=== PATIENT | female | born 1960 | race Caucasian/White ===

== ENCOUNTER 2020-11-21 10:36 | Observation (INO) | payer BC ==
[2020-11-21 10:58] LABS: CHLORIDE,CL 102 mEq/L (98-106); SODIUM,NA 141 mEq/L (136-145)
[2020-11-21] MEDS ORDERED: Ondansetron 4 MG Tab.DIS PO PRN (12:32)
[2020-11-21] MEDS ORDERED: Sodium Chloride 0.9% 10 ML Syringe FLUSH PRN (12:32)
[2020-11-21] MEDS: Morphine 2 MG/ML SYRINGE IVPUSH PRN ×2 (14:32→17:05)
[2020-11-21] MEDS: Lactated Ringers 1,000 ML IV SCH ×2 (14:32→21:24)
[2020-11-21] MEDS: Acetaminophen/HYDROcodone 325-5 MG Tab PO PRN (19:51)
[2020-11-21] MEDS: Enoxaparin 40 MG/0.4 ML Syringe SUBCUT SCH (19:51)
[2020-11-22] MEDS: Morphine 2 MG/ML SYRINGE IVPUSH PRN (00:39)
[2020-11-22] MEDS: Acetaminophen/HYDROcodone 325-5 MG Tab PO PRN ×3 (01:51→16:14)
[2020-11-22] MEDS: HYDROmorphone 1 MG/ML Syringe IVPUSH PRN ×4 (04:09→20:55)
[2020-11-22] MEDS: Lactated Ringers 1,000 ML IV SCH ×3 (04:10→22:33)
[2020-11-22] MEDS ORDERED: Iopamidol 755 Mg/ML 200 ML Bottle IV ONE (07:23)
[2020-11-22 08:08] LABS: CHLORIDE,CL 101 mEq/L (98-106); SODIUM,NA 139 mEq/L (136-145)
[2020-11-22] MEDS: Piperacillin/Tazobactam 3.375 GM in Sodium Chloride 0.9% 100 ML IV SCH (16:04)
--- NOTE | 2020-11-22 16:04 | PCM.PN ---
- General Info Date of Service: 11/22/20 Admission Dx/Problem (Free Text): Pancreatitis Subjective Update: Kimberly is a 60 yo female who was admitted to the hospital from the clinic yesterday with pancreatitis. Patient was found to have an obstructing pancreatic head lesion and underwent ERCP and stent placement earlier this week. She was doing fine initially after discharge. Admits she had been doing well up until the night prior to being seen and started to develop severe RUQ pain with radi ation to her back. Admits to diarrhea, nausea and vomiting on admit. She had also noted swelling to both of her legs. She admits she is waiting to hear back from [facility] for further work up in regards to pancreatic lesion. Today she admits the pain is much better controlled. States she had a horrible night and finally after failing morphine and oral therapy she was switched to Dilaudid which did seem to help. She states she is feeling a lot better now. - Review of Systems General: Reports: Appetite. Denies: Fever, Chills HEENT: Reports: No Symptoms Pulmonary: Denies: Shortness of Breath, Cough Cardiovascular: Reports: Edema. Denies: Chest Pain, Palpitations Gastrointestinal: Reports: Abdominal Pain, Diarrhea, Nausea. Denies: Vomiting Genitourinary: Reports: No Symptoms Musculoskeletal: Reports: Back Pain Skin: Reports: Jaundice Neurological: Reports: No Symptoms - Patient Data Vitals - Most Recent: Last Vital Signs Temp 97.9 F 11/22/20 12:00 Pulse 85 11/22/20 12:00 Resp 16 11/22/20 12:00 BP 177/66 H 11/22/20 12:00 Pulse Ox 95 11/22/20 12:00 Weight - Most Recent: 178 lb I&O - Last 24 Hours: Intake & Output 11/22/20 11/22/20 11/22/20 06:59 14:59 22:59 Intake Total 1000 Output Total 800 300 Balance 200 -300 Lab Results Last 24 Hours: Laboratory Results - last 24 hr 11/22/20 11/22/20 11/22/20 Range/Units 07:50 07:50 07:50 WBC 9.0 (5.0-10.0) 10^3/uL RBC 3.13 L (4.00-5.50) 10^6/uL Hgb 9.7 L (12.0-16.0) g/dL Hct 30.9 L (37.0-47.0) % MCV 98.7 H (82.0-94.0) fL MCH 31.0 (27.0-32.0) pg MCHC 31.4 L (33.0-38.0) g/dL RDW Coeff of Espinoza 16.4 H (11.0-15.0) % Plt Count 546 H (150-400) 10^3/uL Neut % (Auto) 62.8 (35-85) % Lymph % (Auto) 24.3 (10-55) % [place] % (Auto) 10.2 (0-16) % Eos % (Auto) 2.3 (0-5) % Baso % (Auto) 0.4 (0-3) % Neut # (Auto) 5.64 (1.80-7.00) 10^3/uL Lymph # (Auto) 2.19 (1.00-4.80) 10^3/uL [place] # (Auto) 0.92 H (0.00-0.80) 10^3/uL Eos # (Auto) 0.21 (0.00-0.45) 10^3/uL Baso # (Auto) 0.04 10^3/uL Sodium 139 (136-145) mEq/L Potassium 4.2 (3.5-5.0) mEq/L Chloride 101 (98-106) mEq/L Carbon Dioxide 29 (21-32) mmol/L BUN 10 (7-18) mg/dL Creatinine 0.6 (0.6-1.0) mg/dL Est Cr Clr Drug Dosing 86.10 mL/min Estimated GFR (MDRD) > 60 (>=60) mL/min Glucose 104 H (75-99) mg/dL Calcium 9.4 (8.4-10.1) mg/dL Total Bilirubin 4.8 H (0.0-1.0) mg/dL AST 85 H (15-37) U/L ALT 139 H (12-78) U/L Alkaline Phosphatase 640 H (46-116) U/L Total Protein 6.5 (6.4-8.2) g/dL Albumin 2.3 L (3.4-5.0) g/dL Amylase 289 H (25-115) U/L Lipase 2197 H (73-393) U/L Med Orders - Current: Current Medications Hydrocodone Bitart/Acetaminophen ([place] 325-5 Mg) 1 - 2 tab PO Q6H PRN PRN Reason: Pain (severe 7-10) Last Admin: 11/22/20 07:51 Dose: 2 tab Documented by: Docusate Sodium (Colace) 100 mg PO DAILY [facility] Enoxaparin Sodium (Lovenox) 40 mg SUBCUT Q24H [facility] Last Admin: 11/21/20 19:51 Dose: 40 mg Documented by: Hydromorphone HCl (Dilaudid) 1 mg IVPUSH Q2H PRN PRN Reason: Pain Last Admin: 11/22/20 13:49 Dose: 1 mg Documented by: Lactated Ringer's (Ringers, Lactated) 1,000 mls @ 150 mls/hr IV ASDIRECTED [facility] Last Admin: 11/22/20 12:18 Dose: 150 mls/hr Documented by: Piperacillin Sod/Tazobactam (Sod 3.375 gm/ Sodium Chloride) 100 mls @ 25 mls/hr IV Q8H [facility] Ondansetron HCl (Zofran Odt) 4 mg PO Q4H PRN PRN Reason: nausea, able to take PO Pantoprazole Sodium (Protonix Iv) 40 mg IVPUSH Q24H [facility] Sodium Chloride (Saline Flush) 10 ml FLUSH ASDIRECTED PRN PRN Reason: Keep Vein Open Discontinued Medications Lactated Ringer's (Ringers, Lactated) 1,000 mls @ 150 mls/hr IV ASDIRECTED [facility] Last Admin: 11/22/20 04:10 Dose: 150 mls/hr Documented by: Iopamidol (Isovue-370 (76%)) 160 ml IV ONETIME ONE Stop: 11/22/20 07:24 Last Admin: 11/22/20 08:26 Dose: 108 ml Documented by: Morphine Sulfate (Morphine) 2 mg IVPUSH Q2H PRN PRN Reason: Pain (severe 7-10) Last Admin: 11/22/20 00:39 Dose: 2 mg Documented by: - Exam General: Alert, Oriented, Cooperative HEENT: Pupils Equal, Pupils Reactive, Scleral Icterus Neck: Supple. No: Lymphadenopathy Lungs: Clear to Auscultation, Normal Respiratory Effort Cardiovascular: Regular Rate, Regular Rhythm, No Murmurs GI/Abdominal Exam: Soft, No Mass, Tender (epigastric), Hepatomegaly. No: Guarding Extremities: Normal Inspection, Pedal Edema (2+ non pitting edema) Skin: Warm, Dry, Intact Psy/Mental Status: Alert, Normal Affect, Normal Mood Sepsis Event Note - Evaluation Sepsis Screening Result: No Definite Risk - Focused Exam Vital Signs: Vital Signs Temp Pulse Resp BP Pulse Ox 11/22/20 12:00 97.9 F 85 16 177/66 H 95 11/22/20 07:38 96.2 F L 82 18 160/72 H 100 11/22/20 04:00 97.2 F 78 18 163/76 H 100 - Problem List & Annotations (1) Acute pancreatitis after endoscopic retrograde cholangiopancreatography (ERCP) SNOMED Code(s): 076212438 Code(s): K91.89 - OTH POSTPROCEDURAL COMPLICATIONS AND DISORDERS OF DGSTV SYS; K85.90 - ACUTE PANCREATITIS WITHOUT NECROSIS OR INFECTION, UNSP Status: Acute Current Visit: Yes - Problem List Review Problem List Initiated/Reviewed/Updated: Yes - My Orders Last 24 Hours: My Active Orders 11/22/20 08:28 Lactated Ringers [Ringers, Lactated] 1,000 ml IV ASDIRECTED - Plan Plan:: Patient is scheduled to have CT of the abdomen/pelvis today. Patient will remain NPO at this time until results are back from CT scan. If CT scan is negative and no further intervention is needed at this time, will plan to advance diet to clear liquids. Lipase and amylase this morning has came down significantly as compared to yesterday. Will continue to closely monitor. Consulted with Dr. Martinez and will continue IV fluids at 150mls/hr. Ann Marie Ranulfo has been in contact with GI at [facility] in [place].
[2020-11-22] MEDS: Pantoprazole 40 MG Vial IVPUSH SCH (19:41)
[2020-11-22] MEDS: Enoxaparin 40 MG/0.4 ML Syringe SUBCUT SCH (19:41)
[2020-11-23] MEDS: Piperacillin/Tazobactam 3.375 GM in Sodium Chloride 0.9% 100 ML IV SCH ×4 (00:09→23:41)
[2020-11-23] MEDS: Lactated Ringers 1,000 ML IV SCH (04:23)
[2020-11-23 07:30] LABS: CHLORIDE,CL 102 mEq/L (98-106); SODIUM,NA 140 mEq/L (136-145)
[2020-11-23] MEDS: Docusate Sodium 100 MG Cap PO SCH (07:37)
[2020-11-23] MEDS: Pantoprazole 40 MG Vial IVPUSH SCH (19:42)
[2020-11-23] MEDS: Enoxaparin 40 MG/0.4 ML Syringe SUBCUT SCH (19:43)
--- NOTE | 2020-11-23 22:02 | PCM.PN ---
- General Info Date of Service: 11/23/20 Admission Dx/Problem (Free Text): Pancreatitis Subjective Update: Kimberly is a 60 yo female who was admitted to the hospital from the clinic yesterday with pancreatitis. Patient was found to have an obstructing pancreatic head lesion and underwent ERCP and stent placement earlier this week. She was doing fine initially after discharge. Admits she had been doing well up until the night prior to being seen and started to develop severe RUQ pain with radi ation to her back. Admits to diarrhea, nausea and vomiting on admit. She had also noted swelling to both of her legs. She admits she is waiting to hear back from [facility] in [place] for further work up in regards to pancreatic lesion. Today she admits the pain is much better controlled. States she had a horrible night and finally after failing morphine and oral therapy she was switched to Dilaudid which did seem to help. She states she is feeling a lot better now. 11/23/2020 Kimberly is in good spirits this morning. Denies any discomfort this morning. Admits she is feeling a lot better. States she did hear from [facility] and will be getting set up with surgery, PET scan, oncology all on the same day in regards to pancreatic lesion. Denies any new onset of symptoms today. Functional Status: Reports: Pain Controlled, Tolerating Diet, Ambulating, Urinating Pain Score: 0 - Review of Systems General: Denies: Fever, Fatigue HEENT: Reports: No Symptoms Pulmonary: Reports: No Symptoms Cardiovascular: Reports: No Symptoms Gastrointestinal: Reports: No Symptoms. Denies: Abdominal Pain, Diarrhea, Hematochezia, Nausea, Vomiting Genitourinary: Reports: No Symptoms Musculoskeletal: Reports: No Symptoms Skin: Reports: No Symptoms - Patient Data Vitals - Most Recent: Last Vital Signs Temp 99.3 F 11/23/20 20:00 Pulse 99 11/23/20 20:00 Resp 16 11/23/20 20:00 BP 174/79 H 11/23/20 20:00 Pulse Ox 100 11/23/20 20:00 Weight - Most Recent: 181 lb 9.6 oz I&O - Last 24 Hours: Intake & Output 11/23/20 11/23/20 11/23/20 06:59 14:59 22:59 Intake Total 975 2000 Output Total 2300 2800 Balance -1325 -800 Lab Results Last 24 Hours: Laboratory Results - last 24 hr 11/23/20 11/23/20 Range/Units 07:00 07:00 WBC 8.1 (5.0-10.0) 10^3/uL RBC 3.03 L (4.00-5.50) 10^6/uL Hgb 9.2 L (12.0-16.0) g/dL Hct 29.7 L (37.0-47.0) % MCV 98.0 H (82.0-94.0) fL MCH 30.4 (27.0-32.0) pg MCHC 31.0 L (33.0-38.0) g/dL RDW Coeff of Espinoza 15.6 H (11.0-15.0) % Plt Count 487 H (150-400) 10^3/uL Neut % (Auto) 65.3 (35-85) % Lymph % (Auto) 21.4 (10-55) % [place] % (Auto) 10.1 (0-16) % Eos % (Auto) 2.7 (0-5) % Baso % (Auto) 0.5 (0-3) % Neut # (Auto) 5.31 (1.80-7.00) 10^3/uL Lymph # (Auto) 1.74 (1.00-4.80) 10^3/uL Dickson # (Auto) 0.82 H (0.00-0.80) 10^3/uL Eos # (Auto) 0.22 (0.00-0.45) 10^3/uL Baso # (Auto) 0.04 10^3/uL Sodium 140 (136-145) mEq/L Potassium 3.5 (3.5-5.0) mEq/L Chloride 102 (98-106) mEq/L Carbon Dioxide 26 (21-32) mmol/L BUN 8 (7-18) mg/dL Creatinine 0.7 (0.6-1.0) mg/dL Est Cr Clr Drug Dosing 73.80 mL/min Estimated GFR (MDRD) > 60 (>=60) mL/min Glucose 95 (75-99) mg/dL Calcium 9.1 (8.4-10.1) mg/dL Total Bilirubin 4.2 H (0.0-1.0) mg/dL AST 72 H (15-37) U/L ALT 115 H (12-78) U/L Alkaline Phosphatase 538 H (46-116) U/L Total Protein 6.1 L (6.4-8.2) g/dL Albumin 2.3 L (3.4-5.0) g/dL Amylase 52 (25-115) U/L Lipase 150 (73-393) U/L Med Orders - Current: Current Medications Hydrocodone Bitart/Acetaminophen ([place] 325-5 Mg) 1 - 2 tab PO Q6H PRN PRN Reason: Pain (severe 7-10) Last Admin: 11/22/20 16:14 Dose: 2 tab Documented by: Docusate Sodium (Colace) 100 mg PO DAILY [facility] Last Admin: 11/23/20 07:37 Dose: 100 mg Documented by: Enoxaparin Sodium (Lovenox) 40 mg SUBCUT Q24H [facility] Last Admin: 11/23/20 19:43 Dose: 40 mg Documented by: Hydromorphone HCl (Dilaudid) 1 mg IVPUSH Q2H PRN PRN Reason: Pain Last Admin: 11/22/20 20:55 Dose: 1 mg Documented by: Piperacillin Sod/Tazobactam (Sod 3.375 gm/ Sodium Chloride) 100 mls @ 25 mls/hr IV Q8H [facility] Last Admin: 11/23/20 16:12 Dose: 25 mls/hr Documented by: Ondansetron HCl (Zofran Odt) 4 mg PO Q4H PRN PRN Reason: nausea, able to take PO Pantoprazole Sodium (Protonix Iv) 40 mg IVPUSH Q24H [facility] Last Admin: 11/23/20 19:42 Dose: 40 mg Documented by: Sodium Chloride (Saline Flush) 10 ml FLUSH ASDIRECTED PRN PRN Reason: Keep Vein Open Discontinued Medications Lactated Ringer's (Ringers, Lactated) 1,000 mls @ 150 mls/hr IV ASDIRECTED [facility] Last Admin: 11/22/20 04:10 Dose: 150 mls/hr Documented by: Lactated Ringer's (Ringers, Lactated) 1,000 mls @ 150 mls/hr IV ASDIRECTED [facility] Last Admin: 11/23/20 04:23 Dose: 150 mls/hr Documented by: Iopamidol (Isovue-370 (76%)) 160 ml IV ONETIME ONE Stop: 11/22/20 07:24 Last Admin: 11/22/20 08:26 Dose: 108 ml Documented by: Morphine Sulfate (Morphine) 2 mg IVPUSH Q2H PRN PRN Reason: Pain (severe 7-10) Last Admin: 11/22/20 00:39 Dose: 2 mg Documented by: - Exam General: Alert, Oriented, Cooperative, No Acute Distress HEENT: Scleral Icterus (significantly improved from yesterday) Neck: Supple Lungs: Clear to Auscultation, Normal Respiratory Effort Cardiovascular: Regular Rate, Regular Rhythm, No Murmurs GI/Abdominal Exam: Normal Bowel Sounds, Soft, Non-Tender, No Organomegaly, No Distention, No Mass Back Exam: Normal Inspection. No: CVA Tenderness (L), CVA Tenderness (R) Extremities: Pedal Edema (trace bilateral non-pitting) Peripheral Pulses: 2+: Dorsalis Pedis (L), Dorsalis Pedis (R) Skin: Warm, Dry, Intact, Other (trace of jaundice) Psy/Mental Status: Alert, Normal Affect, Normal Mood Sepsis Event Note - Evaluation Sepsis Screening Result: No Definite Risk - Focused Exam Vital Signs: Vital Signs Temp Temp Pulse Resp BP Pulse Ox 11/23/20 20:00 99.3 F 99 16 174/79 H 100 11/23/20 16:00 97.1 F 87 18 181/90 H 100 11/23/20 12:00 98.9 F 81 20 172/82 H 96 - Problem List & Annotations (1) Acute pancreatitis after endoscopic retrograde cholangiopancreatography (ERCP) SNOMED Code(s): 434396457 Code(s): K91.89 - OTH POSTPROCEDURAL COMPLICATIONS AND DISORDERS OF DGSTV SYS; K85.90 - ACUTE PANCREATITIS WITHOUT NECROSIS OR INFECTION, UNSP Status: Acute Current Visit: Yes - Problem List Review Problem List Initiated/Reviewed/Updated: Yes - My Orders Last 24 Hours: My Active Orders 11/23/20 Dinner Mechanical Soft Diet [DIET] - Plan Plan:: Patient is scheduled to have CT of the abdomen/pelvis today. Patient will remain NPO at this time until results are back from CT scan. If CT scan is negative and no further intervention is needed at this time, will plan to advance diet to clear liquids. Lipase and amylase this morning has came down significantly as compared to yesterday. Will continue to closely monitor. Consulted with Dr. Martinez and will continue IV fluids at 150mls/hr. Ann Marie Winchester has been in contact with GI at [facility] in [place]. 11/23/2020 Patients has shown significant improvement since admit. CT of the abdomen/pelvis did not show any sign of necrosis. Pancreatitis noted with dilation of the pancreatic duct with known pancreatic mass. Patient was started on IV antibiotics per recommendation from GI in [place]. She has been able to keep clear liquids down and denies any nausea or vomiting. Will plan on stopping IV fluids today. Will continue to advance diet to mechanically soft. Encourage patient to be ambulatory. Still waiting for COVID test as initial one came back positive. Dr. Martinez in consultation and recommends keeping patient until tomorrow and will plan for discharge in continues to show improvement. Lipase and amylase normal. Will repeat labs in the am. Patient verbalizes understanding.
[2020-11-24] MEDS: Piperacillin/Tazobactam 3.375 GM in Sodium Chloride 0.9% 100 ML IV SCH (08:08)
[2020-11-24] MEDS: Docusate Sodium 100 MG Cap PO SCH (08:08)
[2020-11-24 08:24] LABS: CHLORIDE,CL 104 mEq/L (98-106); SODIUM,NA 144 mEq/L (136-145)
--- NOTE | 2020-11-24 20:02 | PCM.DCSUM1 ---
Discharge Summary - Hospital Course Free Text/Narrative:: Kimberly is a 60 year old female who presented to clinic to see Ann Marie Winchester due to right upper quadrant and back pain. Had been to [place] last week to have a pancreatic stent placed due to development of jaundice as result of a pancreatic mass. Had been eating and drinking well up until 24 hour prior to evaluation. States pain a 10/10. Developed nausea and vomiting. Had also noted increased swelling to her leg with no improvement with elevation of legs. Labs done, amylase 1007, lipase 9156. CT scan of abdomen was done due to increased pain, inflammation noted pancreas indicative of pancreatitis. GI consulted. Recommended starting IV antibiotics. Started on Zosyn, IV fluids and kept NPO. Diagnosis: Stroke: No Modified Sar[place] Scale: No Symptoms at All Modified Luis Scale Score: 0 - Discharge Data Discharge Date: 11/24/20 Discharge Disposition: Home, Self-Care 01 Condition: Fair - Referral to Home Health Primary Care Physician: Ann Marie Winchester PA-C - Discharge Diagnosis/Problem(s) (1) Acute pancreatitis after endoscopic retrograde cholangiopancreatography (ERCP) SNOMED Code(s): 224464759 ICD Code: K91.89 - OTH POSTPROCEDURAL COMPLICATIONS AND DISORDERS OF DGSTV SYS; K85.90 - ACUTE PANCREATITIS WITHOUT NECROSIS OR INFECTION, UNSP Status: Acute Priority: High - Patient Summary/Data Complications: none Hospital Course: Patient is feeling better. Has no pain at this time. She did have intractable pain for first many hours after admission that was not relieved by norco or morphine. Was switched to Dilaudid and got better pain control. Is now not taking anything for pain. Diet has been advanced, tolerating a soft diet. No nausea or vomiting. 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 She is awaiting an evaluation by oncology and surgery. Labs have significantly improved, lipase is now normal. Was given IV Piperacillin. Will discharge home on Augmentin. Initial rapid test for covid was positive, patient states had Covid in August so PCR was done and was negative. - Patient Instructions Diet: Usual Diet as Tolerated Activity: As Tolerated - Discharge Plan *PRESCRIPTION DRUG MONITORING PROGRAM REVIEWED*: No *COPY OF PRESCRIPTION DRUG MONITORING REPORT IN PATIENT GAVINO: No Prescriptions/Med Rec: Amoxicillin/Clavulanate K [Augmentin 875-125 MG] 1 tab PO BID #14 tablet Home Medications: Home Meds Amoxicillin/Clavulanate K [Augmentin 875-125 MG] 1 tab PO BID #14 tablet 11/24/20 [Rx] Patient Handouts: Acute Pancreatitis - Discharge Summary/Plan Comment DC Time >30 min.: No - General Info Date of Service: 11/24/20 Admission Dx/Problem (Free Text: Pancreatitis Functional Status: Reports: Tolerating Diet, Ambulating - Review of Systems General: Reports: Malaise. Denies: Fever, Weakness, Fatigue HEENT: Denies: Ear Pain, Sinus Congestion, Sore Throat Pulmonary: Denies: Shortness of Breath, Cough Cardiovascular: Denies: Chest Pain Gastrointestinal: Denies: Abdominal Pain, Nausea, Vomiting Genitourinary: Reports: No Symptoms Musculoskeletal: Reports: No Symptoms Skin: Reports: Jaundice Neurological: Reports: No Symptoms - Patient Data Vitals - Most Recent: Last Vital Signs Temp 98.3 F 11/24/20 12:00 Pulse 95 11/24/20 12:00 Resp 20 11/24/20 12:00 BP 171/80 H 11/24/20 12:00 Pulse Ox 100 11/24/20 12:00 Weight - Most Recent: 174 lb 11.2 oz I&O - Last 24 hours: Intake & Output 11/24/20 11/24/20 11/24/20 06:59 14:59 22:59 Intake Total 900 Balance 900 Lab Results - Last 24 hrs: Laboratory Results - last 24 hr 11/21/20 11/24/20 11/24/20 Range/Units 13:54 05:00 05:00 WBC 7.8 (5.0-10.0) 10^3/uL RBC 3.06 L (4.00-5.50) 10^6/uL Hgb 9.4 L (12.0-16.0) g/dL Hct 30.3 L (37.0-47.0) % MCV 99.0 H (82.0-94.0) fL MCH 30.7 (27.0-32.0) pg MCHC 31.0 L (33.0-38.0) g/dL RDW Coeff of Espinoza 15.5 H (11.0-15.0) % Plt Count 471 H (150-400) 10^3/uL Neut % (Auto) 58.1 (35-85) % Lymph % (Auto) 27.6 (10-55) % Rich % (Auto) 10.7 (0-16) % Eos % (Auto) 3.2 (0-5) % Baso % (Auto) 0.4 (0-3) % Neut # (Auto) 4.55 (1.80-7.00) 10^3/uL Lymph # (Auto) 2.16 (1.00-4.80) 10^3/uL Rich # (Auto) 0.84 H (0.00-0.80) 10^3/uL Eos # (Auto) 0.25 (0.00-0.45) 10^3/uL Baso # (Auto) 0.03 10^3/uL Sodium 144 (136-145) mEq/L Potassium 3.3 L (3.5-5.0) mEq/L Chloride 104 (98-106) mEq/L Carbon Dioxide 27 (21-32) mmol/L BUN 7 (7-18) mg/dL Creatinine 0.8 (0.6-1.0) mg/dL Est Cr Clr Drug Dosing 64.58 mL/min Estimated GFR (MDRD) > 60 (>=60) mL/min Glucose 98 (75-99) mg/dL Calcium 8.8 (8.4-10.1) mg/dL Total Bilirubin 3.9 H (0.0-1.0) mg/dL AST 72 H (15-37) U/L ALT 109 H (12-78) U/L Alkaline Phosphatase 473 H (46-116) U/L Total Protein 6.1 L (6.4-8.2) g/dL Albumin 2.3 L (3.4-5.0) g/dL Amylase 28 (25-115) U/L Lipase 112 (73-393) U/L SARS-CoV-2 (PCR) Not detected (NOT DETECT) Med Orders - Current: Current Medications Discontinued Medications Hydrocodone Bitart/Acetaminophen ([place] 325-5 Mg) 1 - 2 tab PO Q6H PRN PRN Reason: Pain (severe 7-10) Last Admin: 11/22/20 16:14 Dose: 2 tab Documented by: Docusate Sodium (Colace) 100 mg PO DAILY [facility] Last Admin: 11/24/20 08:08 Dose: 100 mg Documented by: Enoxaparin Sodium (Lovenox) 40 mg SUBCUT Q24H [facility] Last Admin: 11/23/20 19:43 Dose: 40 mg Documented by: Hydromorphone HCl (Dilaudid) 1 mg IVPUSH Q2H PRN PRN Reason: Pain Last Admin: 11/22/20 20:55 Dose: 1 mg Documented by: Lactated Ringer's (Ringers, Lactated) 1,000 mls @ 150 mls/hr IV ASDIRECTED [facility] Last Admin: 11/22/20 04:10 Dose: 150 mls/hr Documented by: Lactated Ringer's (Ringers, Lactated) 1,000 mls @ 150 mls/hr IV ASDIRECTED [facility] Last Admin: 11/23/20 04:23 Dose: 150 mls/hr Documented by: Piperacillin Sod/Tazobactam (Sod 3.375 gm/ Sodium Chloride) 100 mls @ 25 mls/hr IV Q8H [facility] Last Admin: 11/24/20 08:08 Dose: 25 mls/hr Documented by: Iopamidol (Isovue-370 (76%)) 160 ml IV ONETIME ONE Stop: 11/22/20 07:24 Last Admin: 11/22/20 08:26 Dose: 108 ml Documented by: Morphine Sulfate (Morphine) 2 mg IVPUSH Q2H PRN PRN Reason: Pain (severe 7-10) Last Admin: 11/22/20 00:39 Dose: 2 mg Documented by: Ondansetron HCl (Zofran Odt) 4 mg PO Q4H PRN PRN Reason: nausea, able to take PO Pantoprazole Sodium (Protonix Iv) 40 mg IVPUSH Q24H [facility] Last Admin: 11/23/20 19:42 Dose: 40 mg Documented by: Sodium Chloride (Saline Flush) 10 ml FLUSH ASDIRECTED PRN PRN Reason: Keep Vein Open - Exam General: Reports: Alert, Oriented HEENT: Reports: Mucous Membr. Moist/[place], Scleral Icterus Neck: Reports: Supple Lungs: Reports: Clear to Auscultation, Normal Respiratory Effort Cardiovascular: Reports: Regular Rate, Regular Rhythm GI/Abdominal Exam: Normal Bowel Sounds, Soft, Tender (mild tenderness RUQ) Extremities: Normal Inspection, Pedal Edema (1+) Skin: Reports: Warm, Dry Neurological: Reports: No New Focal Deficit
== END 2020-11-24 13:10 | disposition home or self-care (01) ==
LOC: CC.FCMC 10:36 → UNDOADMOB 12:11 → CC.MS 12:11 → UNDOADMOB 12:32
PROVIDERS: ADMIT Physician Assistant Medical; ATTEND Family Medicine
DX: K91.89 Other postprocedural complications and disorders of digestive system (principal); C25.9 Malignant neoplasm of pancreas, unspecified; R17 Unspecified jaundice; K85.80 Other acute pancreatitis without necrosis or infection; Z86.16 Personal history of COVID-19; Z87.891 Personal history of nicotine dependence; Z98.890 Other specified postprocedural states; Z20.822 Contact with and (suspected) exposure to COVID-19
CPT/HCPCS: 36415; 74177; 80053; 82150; 82550; 83690; 85025; 96365; 96366; 96372; 96375; 96376; A9270-GY; C9113; G0378; J1170; J1650; J2270; J2543; J7120; Q9967; U0002

== ENCOUNTER 2024-04-21 15:45 | Inpatient (IN) | payer BC ==
[2024-04-21] MEDS: Ondansetron 4 MG/2 ML SDV IVPUSH STA (16:07)
[2024-04-21] MEDS: HYDROmorphone 1 MG/ML Syringe IVPUSH ONE ×2 (16:07→16:34)
[2024-04-21] MEDS: Sodium Chloride 0.9% 1,000 ML IV ONE (16:07)
[2024-04-21 16:29] LABS: BASOPHILS ABSOLUTE AUTO 0.02 10^3/uL (0.00-0.50); BASOPHILS PERCENT AUTO 0.1 % (0-1); EOSINOPHILS ABSOLUTE AUTO 0.04 10^3/uL (0.00-1.50); EOSINOPHILS PERCENT AUTO 0.2 % (0-6); HEMATOCRIT 34.8 % (37.0-47.0); HEMOGLOBIN 11.1 g/dL (12.0-16.0); IMMATURE GRAN ABSOLUTE AUTO 0.22 10^3/uL (0.00-0.49); IMMATURE GRAN PERCENT AUTO 1.4 % (0.0-4.9); LYMPHOCYTES ABSOLUTE AUTO 1.26 10^3/uL (0.60-5.00); LYMPHOCYTES PERCENT AUTO 7.7 % (24-44); MEAN CORPUSCULAR HEMOGLOBIN 29.1 pg (27.0-32.0); MEAN CORPUSCULAR HGB CONC 31.9 g/dL (32.0-36.0); MEAN CORPUSCULAR VOLUME 91.1 fL (83.0-97.0); MONOCYTES ABSOLUTE AUTO 0.88 10^3/uL (0.00-1.50); MONOCYTES PERCENT AUTO 5.4 % (0-10); NEUTROPHILS ABSOLUTE AUTO 13.84 x10^3/uL (1.80-8.00); NEUTROPHILS PERCENT AUTO 85.2 % (41-71); PLATELET COUNT,PLT 230 10^3/uL (150-400); RED BLOOD CELL COUNT 3.82 x10^6/uL (4.00-5.50); WHITE BLOOD CELL COUNT,WBC 16.3 10^3/uL (4.0-11.0)
[2024-04-21 16:39] LABS: ALANINE AMINOTRANSFERASE,ALT 21 U/L (12-78); ALBUMIN 3.5 g/dL (3.4-5.0); ALKALINE PHOSPHATASE 237 U/L (46-116); ASPARTATE AMNIOTRANSFERASE,AST 14 U/L (15-37); BILIRUBIN TOTAL 0.6 mg/dL (0.0-1.0); BLOOD UREA NITROGEN,BUN 17 mg/dL (7-18); C-REACTIVE PROTEIN < 0.50 mg/dL (<=0.50); CALCIUM 9.1 mg/dL (8.4-10.1); CARBON DIOXIDE,CO2 24 mmol/L (21-32); CHLORIDE,CL 99 mEq/L (98-106); CREATININE 0.9 mg/dL (0.6-1.0); EST CRCL DRUG DOSING (CG) 49.95 mL/min; ESTIMATED GFR 71 mL/min (>=60); GLUCOSE RANDOM 105 mg/dL (75-99); LIPASE 413 U/L (16-77); MAGNESIUM 1.6 mg/dL (1.8-2.4); POTASSIUM,K 3.5 mEq/L (3.5-5.0); PROTEIN TOTAL,TP 6.7 g/dL (6.4-8.2); SODIUM,NA 135 mEq/L (136-145)
[2024-04-21] MEDS ORDERED: Docusate Sodium 100 MG Cap PO PRN (17:53)
[2024-04-21] MEDS ORDERED: oxyCODONE 5 MG Tab PO PRN (17:53)
[2024-04-21] MEDS ORDERED: Polyethylene Glycol 3350 Powder 17 GM Packet PO PRN (17:53)
[2024-04-21] MEDS ORDERED: Ondansetron 4 MG Tab.DIS PO PRN (17:53)
[2024-04-21] MEDS ORDERED: Ondansetron 4 MG/2 ML SDV IV PRN (17:53)
[2024-04-21] MEDS: Lidocaine/Prilocaine 2.5-2.5% Crm 5 GM Tube TOP ONE (19:33)
[2024-04-21] MEDS: Sodium Chloride 0.9% 1,000 ML IV SCH (19:45)
[2024-04-21] MEDS: HYDROmorphone 1 MG/ML Syringe IVPUSH PRN (20:35)
[2024-04-22] MEDS: Iopamidol 755 Mg/ML 100 ML Bottle IVPUSH ONE (05:03)
== END 2024-04-21 20:40 | DRG 282 ==
LOC: CC.ED 15:45 → CC.MS 16:58 → UNDOADMIN 16:58 → CC.MS 17:43 → UNDODISIN 20:40
PROVIDERS: ADMIT Nurse Practitioner; ATTEND Nurse Practitioner
DX: K85.90 Acute pancreatitis without necrosis or infection, unspecified (principal); G89.29 Other chronic pain; M54.9 Dorsalgia, unspecified; D72.829 Elevated white blood cell count, unspecified; C78.00 Secondary malignant neoplasm of unspecified lung; Z90.10 Acquired absence of unspecified breast and nipple; Z85.07 Personal history of malignant neoplasm of pancreas; Z98.890 Other specified postprocedural states
CPT/HCPCS: 36415; 74177; 80053; 83605; 83690; 83735; 84484; 85025; 86140; 93005; A9270-GY; J1170; J2405; J7030

== ENCOUNTER 2025-04-02 13:37 | Inpatient (IN) | payer OTHER | END 2025-04-06 03:45 | disposition EXP | DRG 951 | LOC: CC.MS 13:37 → UNDOADMIN 13:37 | PROVIDERS: ADMIT Nurse Practitioner Family; ATTEND Nurse Practitioner Family | DX: Z51.5 Encounter for palliative care (principal); Z66 Do not resuscitate; Z75.5 Holiday relief care ==